=== PATIENT | female | born 1990 | race African-American/Black ===

== ENCOUNTER → 2024-12-01 10:39 | Outpatient (REF) | payer OTHER, SELFPAY ==
[2024-12-01 13:24] LABS: Hepatitis B Surface Antibody Negative
[2024-12-02 19:15] LABS: Rubella Negative
[2024-12-03 06:48] LABS: Quantiferon Mitogen minus NIL 9.93 IU/mL; Quantiferon NIL 0.07 IU/mL; Quantiferon Plus TB1 minus NIL 0.01 IU/mL (<=0.34); Quantiferon TB Gold Plus Negative (Negative)
[2024-12-03 13:26] LABS: Mumps Virus IgG Positive; Rubeola (Measles) IgG Negative; Varicella Zoster IgG (VZV) Positive
== END ==
LOC: OHS 10:39
PROVIDERS: ATTENDING PHYSICIAN Nurse Practitioner Family
DX: Z23 Encounter for immunization (principal)
CPT/HCPCS: 36415; 86480; 86706; 86735; 86762; 86765; 86787